=== PATIENT | female | born 1955 | race Caucasian/White ===

== ENCOUNTER 2022-10-07 14:01 | Emergency (ER) | payer MEDICARE, OTHER ==
[~2022-10-07] VITALS: Ht 172.7 cm; Wt 85.0 kg
[2022-10-07] MEDS ORDERED: LIPITOR 10M10 MG/TAB PO (14:18)
[2022-10-07 15:56] VITALS: BP 178/97
== END 2022-10-07 15:43 | disposition home or self-care (01) ==
LOC: ED 14:01
DX: S51.012A Laceration without foreign body of left elbow, initial encounter (principal); S00.03XA Contusion of scalp, initial encounter; W00.0XXA Fall on same level due to ice and snow, initial encounter